=== PATIENT | female | born 1990 | race Caucasian/White ===

== ENCOUNTER 2020-10-29 14:43 | Inpatient (IN) | payer MEDICAID ==
[~2020-10-29] VITALS: Ht 157.5 cm; Wt 53.1 kg
[2020-10-30] MEDS ORDERED: QUET100T PO (01:34)
[2020-10-30 02:10] VITALS: BP 125/83
[2020-10-30] MEDS ORDERED: PNEUMOCOCCAL VACCINE POLYVALENT 0.5 ML VIAL [PPSV23] IM. ONE (02:45)
[2020-10-30] MEDS ORDERED: QUEtiapine FUMARATE 100 MG TABLET PO PRN (06:15)
[2020-10-30] MEDS ORDERED: ZOLPIDEM TARTRATE 10 MG TABLET PO PRN (06:15)
[2020-10-30] MEDS ORDERED: PETROLATUM,WHITE 28 GM JELLY TP PRN (07:30)
[2020-10-30] MEDS ORDERED: LOPERAMIDE HCL 2 MG CAPSULE PO PRN (07:30)
[2020-10-30] MEDS ORDERED: IBUPROFEN 400 MG TABLET PO PRN (07:30)
[2020-10-30] MEDS ORDERED: NICOTINE 14 MG/24 HOUR PATCH TD PRN (07:30)
[2020-10-30] MEDS ORDERED: MAG HYDROX/AL HYDROX/SIMETH ES 30 ML SUSPENSION UDCUP PO PRN (07:30)
[2020-10-30] MEDS ORDERED: MAGNESIUM HYDROXIDE SUSPENSION 30 ML UDCUP PO PRN (07:30)
[2020-10-30] MEDS ORDERED: ALBUTEROL SULFATE HFA 90 MCG/PUFF 8 GM INHALER IH PRN (07:30)
[2020-10-30] MEDS ORDERED: ONDANSETRON HCL 4 MG TABLET PO PRN (07:30)
[2020-10-30] MEDS ORDERED: DOCUSATE SODIUM 100 MG CAPSULE PO PRN (07:30)
[2020-10-30] MEDS ORDERED: CloNIDine HCL 0.1 MG TABLET PO PRN (07:30)
[2020-10-30] MEDS ORDERED: GuaiFENesin/D-METHORPHAN [SUGAR-FREE] 200-20MG/10 ML SYRUP UDCUP PO PRN (07:30)
[2020-10-30] MEDS ORDERED: ACETAMINOPHEN 325 MG TABLET PO PRN (07:30)
[2020-10-30 08:11] VITALS: BP 119/82
[2020-10-30] MEDS: LORazepam 1 MG TABLET PO PRN ×3 (09:42→18:06)
[2020-10-30 16:37] VITALS: BP 101/67
[2020-10-30] MEDS: QUEtiapine FUMARATE 100 MG TABLET PO SCH (20:12)
[2020-10-31 00:29] VITALS: BP 106/77
[2020-10-31] MEDS: LORazepam 1 MG TABLET PO PRN ×4 (05:33→21:07)
[2020-10-31 08:14] VITALS: BP 140/85
[2020-10-31 16:11] VITALS: BP 134/84
[2020-10-31] MEDS: QUEtiapine FUMARATE 100 MG TABLET PO SCH (21:07)
[2020-11-01 06:08] VITALS: BP 101/66
[2020-11-01 08:10] VITALS: BP 123/76
[2020-11-01] MEDS: LORazepam 1 MG TABLET PO PRN ×4 (08:10→21:13)
[2020-11-01 16:19] VITALS: BP 105/63
[2020-11-01] MEDS: QUEtiapine FUMARATE 100 MG TABLET PO SCH (21:13)
[2020-11-02 04:46] VITALS: BP 101/64
[2020-11-02 06:32] VITALS: BP 119/76
[2020-11-02] MEDS: LORazepam 1 MG TABLET PO PRN ×4 (06:54→20:07)
[2020-11-02 08:03] VITALS: BP 114/66
[2020-11-02 16:05] VITALS: BP 123/68
[2020-11-02] MEDS: QUEtiapine FUMARATE 200 MG TABLET PO SCH (20:07)
[2020-11-03 00:48] VITALS: BP 114/66
[2020-11-03] MEDS: LORazepam 1 MG TABLET PO PRN ×4 (07:59→21:27)
[2020-11-03 08:50] VITALS: BP 116/70
[2020-11-03 16:26] VITALS: BP 107/67
[2020-11-03] MEDS: QUEtiapine FUMARATE 200 MG TABLET PO SCH (20:12)
[2020-11-04 06:00] VITALS: BP 112/64
[2020-11-04] MEDS: LORazepam 1 MG TABLET PO PRN (06:59)
[2020-11-04 08:20] VITALS: BP 113/66
== END 2020-11-04 20:31 | disposition home or self-care (01) | DRG 750 ==
LOC: B3A 23:54
DX: F25.0 Schizoaffective disorder, bipolar type (principal); B19.10 Unspecified viral hepatitis B without hepatic coma; Z59.0 Homelessness; B19.20 Unspecified viral hepatitis C without hepatic coma; F12.10 Cannabis abuse, uncomplicated; Z88.8 Allergy status to other drugs, medicaments and biological substances; Z79.899 Other long term (current) drug therapy; Z20.822 Contact with and (suspected) exposure to COVID-19
CPT/HCPCS: Z7610